=== PATIENT | male | born 1995 | race Caucasian/White ===

== ENCOUNTER 2022-04-30 18:00 | Emergency (ER) | payer OTHER, BC, SELFPAY ==
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
[2022-04-30 18:10] VITALS: BP 124/83; PULSE 103; RESP 18; TEMP 36.7; O2SAT 100
[2022-04-30 18:16] VITALS: BP 130/55; PULSE 100; O2SAT 99; BMI 28.5
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
== END 2022-04-30 19:52 | disposition home or self-care (01) ==
PROVIDERS: Emergency Provider Internal Medicine
DX: S09.90XA Unspecified injury of head, initial encounter (principal); M54.2 Cervicalgia; R51.9 Headache, unspecified; V43.02XA Car driver injured in collision with other type car in nontraffic accident, initial encounter; Y93.9 Activity, unspecified; Y92.410 Unspecified street and highway as the place of occurrence of the external cause; Y99.9 Unspecified external cause status; Z79.899 Other long term (current) drug therapy
CPT/HCPCS: 70450; 72125; 99284

== ENCOUNTER 2022-05-05 09:58 | Emergency (ER) | payer OTHER, BC, SELFPAY ==
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
[2022-05-05 10:11] VITALS: BP 112/75; PULSE 70; RESP 18; TEMP 37.1; O2SAT 99; BMI 26.4
--- NOTE | 2022-05-05 10:25 | PC.NURSE ---
DR THAYER CONSULTED REGARDING ORDERING HEAD CT FROM [facility]. OK TO ORDER HEAD CT DUE TO UNEQUAL PUPIL SIZE.
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
== END 2022-05-05 13:49 | disposition home or self-care (01) ==
PROVIDERS: Emergency Provider Emergency Medicine Emergency Medical Services
DX: S06.0X0A Concussion without loss of consciousness, initial encounter (principal); V43.52XA Car driver injured in collision with other type car in traffic accident, initial encounter; Y93.9 Activity, unspecified; Y92.410 Unspecified street and highway as the place of occurrence of the external cause; Y99.9 Unspecified external cause status; Z79.899 Other long term (current) drug therapy
CPT/HCPCS: 70450; 99283

== ENCOUNTER 2023-05-23 10:40 | Outpatient (AMB) | payer BC, SELFPAY ==
--- NOTE | 2023-05-23 10:46 | AM.OFFWIN_ITS ---
Intake Vital Signs 05/23/23 10:53 Height 5 ft 11 in BP 118/66 Blood Pressure Location Rt brachial Position Sitting Pulse 68 Pulse Source Pulse Oximeter Temp 98.2 F Temp Source Temporal Artery Scan Pulse Oximetry (%) 98 Intake Visit Reasons: EP tonisil swelling 1+month (marisa,masked) Intake Note: pt is here for c/o for over a month, patient was seen for same thing back on 04/30/23. strep was negative at the time. patient states he has hx of tonsil stones and he gets this for a few months every year Patient Tobacco Use Status: Never used Tobacco Allergies peanut Allergy (Verified 05/23/23 11:00) Anaphylaxis Medication List - Last Reconciled 05/23/23 by Avi Peñaloza PA-C cetirizine (Zyrtec) 10 mg PO DAILY PRN fluticasone propionate 50 mcg/actuation 1 spray intranasal DAILY HPI EP tonisil swelling 1+month (marisa,masked) HPI Details Patient is a 27 year male here today complaining small in tonsils over last month. Has history allergic rhinitis and chronic sinusitis. Has also a history of tonsil stones. Recently had similar episode of tonsillitis PFSH Social History Alcohol intake: never Patient Tobacco Use Status: Never used Tobacco Substance Use Type: Marijuana Review of Systems Const Denies headache(s) Eyes Denies loss of vision ENT Denies vertigo, Denies dizziness, Denies headache(s) and Denies sore throat Card Denies chest pain, Denies leg edema and Denies lightheadedness Resp Denies cough, Denies hemoptysis and Denies wheezing GI Denies abdominal pain, Denies melena, Denies constipation, Denies diarrhea and Denies vomiting Denies dysuria, Denies urinary frequency and Denies urinary urgency Musc Denies arthralgias, Denies joint swelling, Denies numbness and Denies tingling Neuro Denies Abnormal speech present, Denies behavioral changes, Denies vertigo, Mahendra es dizziness, Denies headache(s), Denies loss of vision, Denies memory loss, Denies numbness and Denies tingling Psych Denies anxiety, Denies behavioral changes, Denies depression, Denies memory loss and Denies panic attacks Chao/Lymph Denies easy bleeding and Denies easy bruising Aller/Immun Denies wheezing Physical Exam Vital Signs: Last Vital Signs Temp 98.2 F 05/23/23 10:53 Pulse 68 05/23/23 10:53 BP 118/66 05/23/23 10:53 Pulse Ox 98 05/23/23 10:53 Const General: healthy appearing, no acute distress, alert and awake Nutritional Appearance: well nourished Orientation/consciousness: oriented to person, oriented to place and oriented to time HEENT Other: THROAT WITH TONSILS 2+ PAST ANTERIOR PILLARS. NO NOTABLE ERYTHEMA . NO NOTABLE STONE AT THIS TIME, NO WHITE PATCHY EXUDATES. Ears: TM's normal bilaterally General nose exam: Normal nasal mucous membranes and turbinates present Eyes Conjunctivae: conjunctivae normal Sclerae: sclerae normal Pupils: Equal, round and reactive pupils present Neck Neck: Yes no lymphadenopathy and Yes no JVD Thyroid: Thyroid normal Carotids: no bruits Resp Effort & Inspection: normal respiratory effort and not tachypneic Auscultation: no crackles, no rales, no rhonchi and no wheezes Cardio Rate: regular rate Rhythm: regular rhythm Heart sounds: no murmurs and normal S1 and S2 GI Palpation (GI): Soft to palpation, nontender, no hepatomegaly and no splenomegaly Auscultation: normal bowel sounds Skin General skin exam: no rashes or lesions noted and dry skin Neuro General: oriented to person, oriented to place and oriented to time Cranial nerves: Yes Equal, round and reactive pupils present Speech: No Abnormal speech present Gait exam (Neuro): Normal gait present Motor exam (neuro): no tremor noted Extrem Right upper extremity: full ROM Left upper extremity: full ROM Right lower extremity: full ROM; no edema Left lower extremity: full ROM; no edema Psych Mental Status: mental status grossly normal Speech and movement: Normal speech and movement present Affect: normal affect Attitude: cooperative Thought process: Normal thought process present Assessment & Plan Assessment & Plan (1) Tonsil stone: Code(s): J35.8 - Other chronic diseases of tonsils and adenoids Plan: Patient's signs and symptoms most consistent with a pharyngitis likely secondary to his tonsil stones on the right side. Physical exam does show tonsils 2+ past anterior pillars. Strep negative today in office. Has already done antibiotics and prednisone the past without much relief. Advised on antihistamine therapy and popsicles to help reduce inflammation. Will refer to ENT for evaluation and possible need for elective tonsillectomy Orders: Referrals Ear/Nose/Throat Referral J35.8 - Other chronic diseases of tonsils and adenoids Coding Level of Care Code Est Pt Level 3 (42870) Diagnoses Tonsil stone J35.8
[2023-05-23 10:53] VITALS: BP 118/66; PULSE 68; TEMP 36.8; O2SAT 98
== END 2023-05-23 11:20 | disposition home or self-care (01) ==
PROVIDERS: PCP Hospitalist; Visit Provider Physician Assistant
DX: J35.8 Other chronic diseases of tonsils and adenoids (principal); Z13.9 Encounter for screening, unspecified
CPT/HCPCS: 87880; 99213

== ENCOUNTER 2023-10-15 11:07 | Outpatient (AMB) | payer BC, SELFPAY ==
[2023-10-15 11:14] VITALS: BP 120/64; PULSE 77; TEMP 36.4; O2SAT 98; BMI 29.5
--- NOTE | 2023-10-15 11:14 | MHC.OFFWIV ---
Intake Vital Signs 10/15/23 11:14 Height 5 ft 11 in Weight 211 lb 8 oz BMI 29.5 BP 120/64 Blood Pressure Location Lt brachial Position Sitting Pulse 77 Pulse Source Pulse Oximeter Temp 97.5 F Temp Source Temporal Artery Scan Pulse Oximetry (%) 98 Oxygen Delivery Method Room Air Intake Visit Reasons: EP swollen thyroid 1 wk Intake Note: Pt is here c/o right side swollen thyroid. Pt states he has a family history of thyroid issues. Patient Tobacco Use Status: Never used Tobacco Allergies peanut Allergy (Verified 10/15/23 11:15) Anaphylaxis Do you need a note to return to daycare/school/sports/work: No HPI HPI Comments History of Present Illness Details This is a 28yo male with a past medical history of seasonal allergies and tonsil stones presenting for evaluation of subjective enlargement of the right-sided his thyroid that he 1st noticed approximately 10 days ago. The patient states had a primary care physician appointment scheduled this morning in [place] however was canceled as the primary care physician has left practice. Patient denies having any pain in his thyroid has no difficulty swallowing or radiation of pain. Patient states his grandparents had issues related to a hyperthyroid state. [facility] Social History Alcohol intake: never Patient Tobacco Use Status: Never used Tobacco Substance Use Type: Marijuana Review of Systems Const All systems reviewed & are unremarkable except as noted in HPI and below Denies excessive sweating and Denies fatigue Eyes Reports as per HPI ENT Reports no additional complaints Card Reports as per HPI, Reports no additional complaints and Denies palpitations Psych Reports no additional complaints Endo Denies cold intolerance, Denies excessive sweating, Denies fatigue, Denies flushing, Denies heat intolerance, Denies polydipsia, Denies polyuria and Denies palpitations Chao/Lymph Reports no additional complaints Aller/Immun Reports no additional complaints Physical Exam Vital Signs: Last Vital Signs Temp 97.5 F 10/15/23 11:14 Pulse 77 10/15/23 11:14 BP 120/64 10/15/23 11:14 Pulse Ox 98 10/15/23 11:14 Oxygen Delivery Method Room Air 10/15/23 11:14 BMI result Body Mass Index 29.5 Const General: cooperative, healthy appearing, comfortable and no acute distress; No diaphoretic or ill appearing Nutritional Appearance: average body habitus Orientation/consciousness: patient oriented x3 Limitations: no limitations HEENT Head: Yes normal to inspection and Yes normocephalic Ears: hearing grossly normal bilaterally Mouth: Normal oral and palatal mucosa present, oropharynx normal and moist mucous membranes Teeth and gingiva: dentition normal Throat: Yes posterior oropharynx normal Eyes Eyelids: Yes eyelids normal Conjunctivae: conjunctivae normal Sclerae: sclerae normal Corneas: corneas normal Pupils: Equal, round and reactive pupils present EOM: EOMs intact bilaterally Neck Neck: Yes normal visual inspection, Yes full ROM, Yes no lymphadenopathy and Yes trachea midline Thyroid: asymmetrical (mild enlargement right lobe; no discrete nodules noted, thyroid nontender.), not diffusely enlarged, not firm, no nodules, no palpable nodules and nontender Skin General skin exam: no rashes or lesions noted Neuro General: patient oriented x3 Cranial nerves: Yes Equal, round and reactive pupils present Psych Appearance: grossly normal Mental Status: mental status grossly normal Insight: Good insight present (Psych) Judgement: Good judgement present (Psych) Assessment & Plan Assessment & Plan (1) Encounter for imaging to assess thyroid enlargement: Code(s): Z01.89 - Encounter for other specified special examinations Plan: Thyroid US is ordered; no laboratories ordered today. Patient will call PCP office in [place] to schedule follow-up with other PCP for further evaluation and treatment. Orders: Orders US thyroid 10/19/23 Z01.89 - Encounter for other specified special examinations Coding Level of Care Code Est Pt Level 3 (50479) Diagnoses Encounter for imaging to assess thyroid enlargement Z01.89 Time Spent (min) 20
== END 2023-10-15 12:02 | disposition home or self-care (01) ==
PROVIDERS: PCP Hospitalist; Visit Provider Physician Assistant
DX: Z01.89 Encounter for other specified special examinations (principal)
CPT/HCPCS: 99213

== ENCOUNTER 2023-10-19 12:42 | Outpatient (REF) | payer BC, SELFPAY ==
--- NOTE | ~2023-10-19 | US_ITS ---
EXAMINATION: US THYROID CLINICAL INFORMATION: Enlarged thyroid. COMPARISON: None available. TECHNIQUE: Linear transducer grayscale and color Doppler examination with attention to the region of the thyroid. FINDINGS: SIZE: Measurements of the thyroid lobes and nodules are given in sagittal, anteroposterior and transverse dimensions respectively. Right Thyroid Lobe: 6.24 x 2.27 x 2.04 cm, volume 15.2 mL. Parenchyma: The gland echotexture is heterogeneous. Thyroid vascularity is increased. Left Thyroid Lobe: 5.25 x 1.55 x 2.01 cm, volume 8.56 mL. Parenchyma: The gland echotexture is heterogeneous. Thyroid vascularity is increased. Isthmus: 0.57 cm in maximum AP dimension. No suspicious thyroid nodule is seen. NODES: Left level 3 nodes measure 0.8 x 0.8 x 0.5 cm and 0.2 x 0.9 x 1.4 cm. Echogenic priya are identified. US/US thyroid IMPRESSION: Diffusely heterogeneous and hypervascular thyroid gland. No suspicious thyroid nodules. Large, extremely heterogeneous thyroid gland. No discrete suspicious thyroid nodule appreciated. Left level 3 nodes measure 0.8 x 0.8 x 0.5 cm and 0.2 x 0.9 x 1.4 cm. Echogenic priya are identified. Decisions regarding further management and follow-up imaging should be based on clinical assessment. ACR TI-RADS RECOMMENDATION REFERENCE: Ultrasound-guided fine-needle aspiration, followup ultrasound, no further follow up. * TR1 (0 point) and TR2 (2 points): No FNA or follow up. * TR3 (3 points): FNA if more than or equal to 2.5 cm in maximum dimension, followup ultrasound in 1, 3 and 5 years if 1.5 to 2.4 cm in maximum dimension. * TR4 (4-6 points): FNA if more than or equal to 1.5 cm in maximum dimension, followup ultrasound in 1, 2, 3 and 5 years if 1 to 1.4 cm in maximum dimension. * TR5 (more than or equal to 7 points): FNA if more than or equal to 1 cm in maximum dimension, followup ultrasound every year for 5 years if 0.5 to 0.9 cm in maximum dimension. * TR3, TR4 or TR5 nodules that are below the size threshold for followup receive no follow up.
== END 2023-10-19 12:43 | disposition home or self-care (01) ==
LOC: HO.HMGCX 12:42
PROVIDERS: Visit Provider Physician Assistant
DX: Z01.89 Encounter for other specified special examinations (principal)
CPT/HCPCS: 76536

== ENCOUNTER 2023-10-29 15:39 | Outpatient (AMB) | payer BC, SELFPAY ==
--- NOTE | 2023-10-29 15:53 | MHC.PC.OV ---
Vital Signs 10/29/23 15:54 Height 5 ft 11 in Weight 212 lb 4 oz BMI 29.6 BP 118/76 Blood Pressure Location Lt brachial Position Sitting Respiration 13 Pulse 82 Pulse Source Pulse Oximeter Temp 97.9 F Temp Source Temporal Artery Scan Pulse Oximetry (%) 99 Oxygen Delivery Method Room Air Intake Visit Reasons: f/u thyroid labs and ultrasound Intake Note: Patient states that he was told that he should follow up with pcp to get referral to pan shaker. 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 Accompanied by: Self / Same As Patient Allergies peanut Allergy (Verified 10/29/23 16:15) Anaphylaxis Medication List - Last Reconciled 10/29/23 by Robbie Ko CNP No Known Home Meds Tobacco use date assessed: 10/29/23 Dental Screening Dental Screen Date: 10/29/23 Did you have a dental visit in the last 12 months?: No Did you have a dental problem in the last 6 months where you did not have access to dental care?: No Was dental information given to patient?: Patient has dentist HPI HPI Comments History of Present Illness Details 28-year-old male presents for a follow-up visit On 10/15/2023, he was evaluated at the [place] [facility] for subjective complaint of swollen thyroid gland. He had thyroid ultrasound done on 10/19/2023 with the following findings: IMPRESSION: Diffusely heterogeneous and hypervascular thyroid gland. No suspicious thyroid nodules. Large, extremely heterogeneous thyroid gland. No discrete suspicious thyroid nodule appreciated. Left level 3 nodes measure 0.8 x 0.8 x 0.5 cm and 0.2 x 0.9 x 1.4 cm. Echogenic priya are identified. Decisions regarding further management and follow-up imaging should be based on clinical assessment. ACR TI-RADS RECOMMENDATION REFERENCE: Ultrasound-guided fine-needle aspiration, followup ultrasound, no further follow up. * TR1 (0 point) and TR2 (2 points): No FNA or follow up. * TR3 (3 points): FNA if more than or equal to 2.5 cm in maximum dimension, followup ultrasound in 1, 3 and 5 years if 1.5 to 2.4 cm in maximum dimension. * TR4 (4-6 points): FNA if more than or equal to 1.5 cm in maximum dimension, followup ultrasound in 1, 2, 3 and 5 years if 1 to 1.4 cm in maximum dimension. * TR5 (more than or equal to 7 points): FNA if more than or equal to 1 cm in maximum dimension, followup ultrasound every year for 5 years if 0.5 to 0.9 cm in maximum dimension. * TR3, TR4 or TR5 nodules that are below the size threshold for followup receive no follow up. He notes that he was advised to follow-up with his PCP for referral to Endocrinology He notes that his thyroid gland has been swollen for the past one month, right worse than left. No associated pain , difficulty swallowing, or other symptoms He reports family history of hypothyroidism. 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 Cognitive needs: No Hearing needs: No Vision needs: No Review of Systems Const Details: Const Denies chills, Denies fatigue, Denies fever(s), Denies headache(s) and Denies weakness ENT Denies dizziness and Denies headache(s) Card Denies chest pain, Denies lightheadedness, Denies dyspnea and Denies other (Palpitations) Resp Denies cough, Denies dyspnea, Denies wheezing and Denies other ( shortness of breath) GI Denies abdominal pain, Denies melena, Denies hematochezia, Denies change in bowel habits, Denies dyspepsia and Denies nausea Denies hematuria and Denies dysuria Musc Denies abnormal gait, Denies myalgias, Denies arthralgias, Denies numbness and Denies tingling Skin/Breast Denies rash, Denies unusual bruising and Denies wounds Neuro Denies abnormal gait, Denies dizziness, Denies headache(s), Denies memory loss, Denies numbness, Denies Sensory deficit (Neuro), Denies tingling and Denies weakness Psych Denies anxiety, Denies depression, Denies memory loss Endo Denies cold intolerance, Denies fatigue, Denies heat intolerance, Denies polydipsia and Denies polyuria Aller/Immun Denies wheezing Physical exam (Primary Care) Vital Signs: Last Vital Signs Temp 97.9 F 10/29/23 15:54 Pulse 82 10/29/23 15:54 Resp 13 10/29/23 15:54 BP 118/76 10/29/23 15:54 Pulse Ox 99 10/29/23 15:54 Oxygen Delivery Method Room Air 10/29/23 15:54 BMI result Body Mass Index 29.6 Tobacco/Smoking Status: Tobacco use Status Tobacco use date assessed 10/29/23 10/29/23 16:00 Patient Tobacco Use Status Never used Tobacco 10/29/23 16:00 e-Cigarette/Vaping Use Never Used 10/29/23 16:00 Const Other: General: no acute distress and well developed Nutritional Appearance: well nourished Orientation/consciousness: patient oriented x3 HENMT Head: Yes normocephalic and Yes atraumatic Thyroid gland slightly enlarged, no mass palpated Eyes General: appearance normal, both eyes and all related structures Pupils: Equal, round and reactive pupils present EOM: EOMs intact bilaterally Resp Effort & Inspection: normal respiratory effort Auscultation: clear to auscultation bilaterally Cardio Rate: regular rate Rhythm: regular rhythm Heart sounds: S1 normal heart sound present, S2 normal heart sound present, no gallops, no murmurs and no rubs GI Palpation (GI): No Abdominal aortic bruit present, Soft to palpation, nontender, No hepatosplenomegaly present and No Rebound tenderness present Auscultation: normal bowel sounds General: Yes no CVA tenderness Back/Spine/Pelvis Back: no CVA tenderness Cervical Spine: cervical ROM normal and No Cervical spine tenderness Thoracic/Lumbar Spine: thoraco-lumbar ROM normal, No pain with thoraco-lumbar ROM, No thoracic spinal tenderness and No lumbar spinal tenderness Extrem General: Yes normal to inspection, No edema and No calf tenderness Skin General: warm and dry. Normal skin color. Normal skin turgor Lesions: no lesions Rashes: no rashes Trauma: no lacerations or abrasions Wounds: no wounds Nails: normal Neuro General: patient oriented x3, gait normal and no focal neuro deficit Cranial nerves: Yes Equal, round and reactive pupils present Cognition (Neuro): normal cognition Gait exam (Neuro): Normal gait present Sensory Exam: No Sensory deficit (Neuro) Psych Appearance: grossly normal Affect: normal affect Attitude: cooperative Thought process: Normal thought process present Assessment and Plan Assessment & Plan (1) Thyroid nodule: Code(s): E04.1 - Nontoxic single thyroid nodule Plan: Reports swelling thyroid gland for the past 1 month, right worse than left. No associated pain or difficulty swallowing Thyroid gland slightly enlarged, no mass palpated Recent thyroid ultrasound revealed thyroid nodules and enlarged thyroid gland TSH/T4 ordered Referred to endocrinology Follow-up as planned for transfer of care Return sooner with symptoms or concerns Verbalized understanding and agreed with treatment plan (2) Enlarged thyroid: Code(s): E04.9 - Nontoxic goiter, unspecified Plan: As above (3) Laboratory tests ordered as part of a complete physical exam (CPE): Code(s): Z00.00 - Encounter for general adult medical examination without abnormal findings Plan: Fasting labs ordered as part of a complete physical exam. Advised to fast for at least 10 hours before getting labs drawn. May drink water Verbalized understanding and agreed with treatment plan. Orders: Orders TSH reflex Free T4 10/29/23 E04.1 - Nontoxic single thyroid nodule, E04.9 - Nontoxic goiter, unspecified Complete Blood Count Auto Diff 10/29/23 Z00.00 - Encounter for general adult medical examination without abnormal findings Comprehensive [place]. Panel Fast 10/29/23 Z00.00 - Encounter for general adult medical examination without abnormal findings Lipid Panel 10/29/23 Z00.00 - Encounter for general adult medical examination without abnormal findings Referrals Endocrinology Referral E04.1 - Nontoxic single thyroid nodule, E04.9 - Nontoxic goiter, unspecified Coding Level of Care Code Est Pt Level 3 (39971) Diagnoses Thyroid nodule E04.1 Enlarged thyroid E04.9 Laboratory tests ordered as part of a complete physical exam (CPE) Z00.00
[2023-10-29 15:54] VITALS: BP 118/76; PULSE 82; RESP 13; TEMP 36.6; O2SAT 99; BMI 29.6
== END 2023-10-29 16:33 | disposition home or self-care (01) ==
PROVIDERS: PCP Hospitalist; Visit Provider Nurse Practitioner Family
DX: E04.1 Nontoxic single thyroid nodule (principal); E04.9 Nontoxic goiter, unspecified; Z00.00 Encounter for general adult medical examination without abnormal findings
CPT/HCPCS: 99213

== ENCOUNTER 2023-11-12 09:35 | Outpatient (REF) | payer BC, SELFPAY ==
[2023-11-12 13:51] LABS: MANUAL DIFF FLAG NO
[2023-11-12 14:06] LABS: Basophils Percent Auto 0.4 % (0-2); Eosinophils Absolute Auto 0.1 X10*3/uL (0.0-0.4); Eosinophils Percent Auto 1.3 % (0-4); Hematocrit 46.7 % (42.0-52.0); Hemoglobin 15.5 g/dl (14.0-18.0); Imm Gran Abs Auto 0.02 X10*3/uL (0.00-0.03); Imm Gran Pct Auto 0.4 % (0.0-0.4); Lymphocytes Absolute Auto 1.5 X10*3/uL (1.2-4.9); Lymphocytes Percent Auto 26.7 % (20-40); Mean Corpuscular HGB Conc 33.2 g/dl (31.0-36.0); Mean Corpuscular Hemoglobin 28.9 pg (27.0-33.0); Mean Platelet Volume 11.5 fL (9.4-12.4); Monocytes Absolute Auto 0.6 X10*3/uL (0.1-1.2); Monocytes Percent Auto 10.4 % (2-11); Neutrophils Absolute Auto 3.3 x10*3/uL (2.0-8.3); Neutrophils Percent Auto 60.8 % (45-73); Platelet Count 219 X10*3/uL (160-400); Red Blood Count 5.37 X10*6/uL (4.60-5.80); Red Cell Distribution Width 12.7 % (11.0-16.0); White Blood Count 5.5 X10*3/uL (4.8-10.8)
[2023-11-12 14:30] LABS: Alanine Aminotransferase 21 U/L (0-40); Albumin Level 4.4 g/dL (3.5-5.0); Alkaline Phosphatase 41 U/L (39-117); Anion Gap 11 (12-20); Aspartate Amino Transferase 18 U/L (5-37); Bilirubin Total 0.5 mg/dL (0.0-1.0); Blood Urea Nitrogen 13 mg/dL (9-16); Calcium 9.9 mg/dL (8.4-10.2); Carbon Dioxide 27 mmol/L (22-29); Chloride 107 mmol/L (96-108); Cholesterol 168 mg/dL (<200); Estimated Glomerular Filt Rate > 60; Glucose Fasting 103 mg/dL (60-99); HDL Cholesterol 41 mg/dL (>40); LDL Cholesterol Calculated 113 mg/dL (<100); Potassium 4.6 mmol/L (3.3-5.1); Sodium 140 mmol/L (135-145); Total Protein 7.4 g/dL (6.5-8.0); Triglycerides 73 mg/dL (<150)
== END 2023-11-12 09:36 | disposition home or self-care (01) ==
LOC: HO.HMGCLDS 09:35
PROVIDERS: PCP Nurse Practitioner Family; Visit Provider Nurse Practitioner Family
DX: Z00.00 Encounter for general adult medical examination without abnormal findings (principal); E04.1 Nontoxic single thyroid nodule; E04.9 Nontoxic goiter, unspecified
CPT/HCPCS: 36415; 80053; 80061; 84443; 85025

== ENCOUNTER 2023-11-30 14:39 | Outpatient (AMB) | payer BC, SELFPAY ==
[2023-11-30 15:02] VITALS: BP 126/74; PULSE 79; RESP 13; TEMP 36.4; O2SAT 99; BMI 28.7
--- NOTE | 2023-11-30 15:02 | A.OFFPC_ITS ---
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 Accompanied by: Self / Same As Patient Allergies peanut Allergy (Verified 11/30/23 15:10) Anaphylaxis Medication List - Last Reconciled 11/30/23 by Robbie Ko CNP No Known Home Meds Tobacco use date assessed: 11/30/23 Dental Screening Dental Screen Date: 11/30/23 Did you have a dental visit in the last 12 months?: No Did you have a dental problem in the last 6 months where you did not have access to dental care?: No Was dental information given to patient?: Patient has dentist HPI HPI Comments History of Present Illness Details 28-year-old male presents for transfer o f care Her former PCP is JOSE G who is no longer with the practice She was evaluated in the office a month ago for enlarged thyroid gland follow-up and was referred to endocrinology. He notes that he was evaluated by [facility] last week. He was told there were no concerns and was advised to follow up in 6 months Recent labs were unremarkable except for slightly elevated fasting glucose, 103 He notes he is not anxious any more than usual. He notes h/o ROZINA with h/o psychotherapy, no h/o psychotropic medications. 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 1. Little interest or pleasure in doing things: not at all 2. Feeling down, depressed, or hopeless: several days 3. Trouble falling or staying asleep, or sleeping too much: not at all 4. Feeling tired or having little energy: several days 5. Poor appetite or overeating: not at all 6. Feeling bad about yourself - or that you are a failure or have let yourself or your family down: more than half the days 7. Trouble concentrating on things, such as reading the newspaper or watching television: not at all 8. Moving or speaking so slowly that other people could have noticed. Or the opposite - being so fidgety or restless that you have been moving around a lot more than usual: not at all 9. Thoughts that you would be better off or of hurting yourself in some way: not at all Total score: 4 Depression Screening Interpretation: Negative Depression Screening Done: Yes 33127 - PHQ-9 Billing: Yes Source: Developed by Drs. Abdiel Adan, Manju Woods, Juancarlos Hughes and colleagues, with an educational chandler from [employer]. Thrive Questionnaire Date Thrive assessed: 11/30/23 I am a: Patient What is your living situation today?: I have a steady place to live Within the past 12 months, did the food you bought not last and you didn't have the money to get more?: Never true Within the past 12 months, did you worry whether your food would run out before you got money to buy more?: Never true Do you have trouble paying for medicines?: No Do you have trouble getting transportation to medical appointments?: No Do you have trouble paying your heating and electricity bill?: No Do you have trouble taking care of your child, family member or friend?: No Do you have trouble with day-to-day activities such as bathing, preparing meals, shopping, managing finances, etc.?: No Are you currently unemployed and looking for a job?: No Are you interested in more education?: Yes Please select the resources that you would like help with: Education Currently or been in a relationship where the following occur: no concerns reported THRIVE Score: 0 AUDIT C Alcohol Use Questionnaire (AUDIT-C) 1. How often do you have a drink containing alcohol?: Monthly or less 2. How many drinks containing alcohol do you have on a typical day when you are drinking?: 1 or 2 3. How often do you have six or more drinks on one occasion?: Never Total Score: 1 ROZINA-7 AMB Questionnaire ROZINA-7 Date ROZINA - 7 assessed: 11/30/23 Feeling nervous, anxious, or on edge: 2 = More than half the days Not being able to stop or control worryin = More than half the days Worrying too much about different things: 2 = More than half the days Trouble relaxin = Several days Being so restless that it is hard to sit still: 1 = Several days Becoming easily annoyed or irritable: 1 = Several days Feeling afraid as if something awful might happen: 2 = More than half the days Total ROZINA-7 score (0-4 normal; 5-9 mild; 10-14 moderate; 15-21 severe): 11 Source: Developed by Drs. Abdiel Adan, Manju Woods, Juancarlos Hughes and colleagues, with an educational chandler from [employer]. ROZINA-7 Assessment Billing ROZINA-7 Assessment Tool: ROZINA-7 Assessment 40114 Review of Systems Const Details: Denies chills, Denies fatigue, Denies fever(s), Denies headache(s) and Denies weakness HEENT Denies change in vision, Denies dizziness, Denies headache(s), Denies hearing loss, Denies nasal congestion, Denies sinus pain, Denies sinus pressure and Denies sore throat Card Denies chest pain, Denies lightheadedness, Denies dyspnea and Denies other (palpitations) Resp Denies cough, Denies dyspnea and Denies wheezing GI Denies abdominal pain, Denies melena, Denies hematochezia, Denies change in bowel habits, Denies dyspepsia and Denies nausea Denies hematuria and Denies dysuria Musc Denies abnormal gait, Denies myalgias, Denies arthralgias, Denies numbness and Denies tingling Skin/Breast Denies rash, Denies unusual bruising and Denies wounds Neuro Denies abnormal gait, Denies dizziness, Denies headache(s), Denies memory loss, Denies numbness, Denies Sensory deficit (Neuro), Denies tingling and Denies weakness Psych Denies anxiety, Denies depression and Denies memory loss Endo Denies cold intolerance, Denies fatigue, Denies heat intolerance, Denies polydipsia and Denies polyuria Chao/Lymph Denies easy bleeding and Denies easy bruising Aller/Immun Denies wheezing Physical exam (Primary Care) Tobacco/Smoking Status: Tobacco use Status Tobacco use date assessed 10/29/23 10/29/23 16:00 Patient Tobacco Use Status Never used Tobacco 10/29/23 16:00 e-Cigarette/Vaping Use Never Used 10/29/23 16:00 Depression Screening Interpretation: Negative Currently or been in a relationship where the following occur: no concerns reported Const Other: General: no acute distress, well developed, alert and awake Nutritional Appearance: well nourished Orientation/consciousness: patient oriented x3 HENMT Head: Yes normocephalic and Yes atraumatic Ears: hearing grossly normal bilaterally and TM's normal bilaterally General nose exam: Normal external nose present and Normal nares present Mouth: Normal oral and palatal mucosa present and moist mucous membranes Teeth and gingiva: dentition normal Throat: Yes oropharynx normal Eyes Pupils: Equal, round and reactive pupils present and Pupil accommodation reflex normal EOM: EOMs intact bilaterally Neck Neck: Yes normal visual inspection, Yes no lymphadenopathy and Yes trachea midline Thyroid: Thyroid normal Carotids: no bruits Lymphatic: no lymphadenopathy noted Chest Chest palpation & inspection: normal inspection of the chest Resp Effort & Inspection: normal respiratory effort Auscultation: clear to auscultation bilaterally Cardio Rate: regular rate Rhythm: regular rhythm Heart sounds: S1 normal heart sound present, S2 normal heart sound present, no gallops, no murmurs and no rubs Bruits: no abdominal aortic bruits and no carotid bruits GI Palpation (GI): No Abdominal aortic bruit present, Soft to palpation, nontender, No hepatosplenomegaly present and No Rebound tenderness present Auscultation: normal bowel sounds General: Yes no CVA tenderness Back/Spine/Pelvis Back: no CVA tenderness Cervical Spine: cervical ROM normal and No Cervical spine tenderness Thoracic/Lumbar Spine: thoraco-lumbar ROM normal, No pain with thoraco-lumbar ROM, No thoracic spinal tenderness and No lumbar spinal tenderness Skin General: warm and dry. Normal skin color. Normal skin turgor Lesions: no lesions Rashes: no rashes Trauma: no lacerations or abrasions Wounds: no wounds Nails: normal Neuro General: patient oriented x3, gait normal and CN's II-XI intact bilaterally Cranial nerves: Yes Equal, round and reactive pupils present Cognition (Neuro): normal cognition Gait exam (Neuro): Normal gait present Motor exam (neuro): 5/5 motor strength present throughout Sensory Exam: No Sensory deficit (Neuro) Deep tendon reflexes (DTR's): Right patellar reflex intensity grade: 2+ and Left patellar reflex intensity grade: 2+ Extrem General: Yes normal to inspection, No edema and No calf tenderness Psych Appearance: grossly normal Affect: normal affect Attitude: cooperative Thought process: Normal thought process present Assessment and Plan Assessment & Plan (1) Normal physical exam: Code(s): Z00.00 - Encounter for general adult medical examination without abnormal findings Plan: No significant physical restrictions or limitations noted Healthy diet and routine exercise encouraged Advised to schedule his next physical for a year from today Follow-up with endocrinology as planned Return with symptoms or concerns Verbalized understanding and agreed with treatment plan (2) Generalized anxiety disorder: Code(s): F41.1 - Generalized anxiety disorder Plan: Reports controlled symptoms with self therapy PHQ-9 score is normal ROZINA-7 score reveals moderate anxiety Declines therapy or medication management Routine exercise encouraged Advised to inform his PCP if he changes his mind on therapy or medication management Follow-up with worsening or new symptoms Verbalized understanding and agreed with treatment plan Coding Level of Care Code Est Pt Prev Care 18-39y(33313) Diagnoses Normal physical exam Z00.00 Generalized anxiety disorder F41.1 Additional Codes ROZINA-7 Assessment Billing - ROZINA-7 Assessment Tool: ROZINA-7 Assessment 77498 ([id number])
== END 2023-11-30 15:27 | disposition home or self-care (01) ==
PROVIDERS: PCP Hospitalist; Visit Provider Nurse Practitioner Family
DX: Z00.00 Encounter for general adult medical examination without abnormal findings (principal); F41.1 Generalized anxiety disorder
CPT/HCPCS: 99395

== ENCOUNTER 2024-05-24 17:15 | Outpatient (AMB) | payer BC, SELFPAY ==
--- NOTE | 2024-05-24 17:17 | A.OFFPC_ITS ---
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 The wart has been present for the past 2 months and not increasing in size. No itching or other associated symptoms. He denies h/o wart. [facility] Medical History No pertinent past medical history Surgical History No pertinent past surgical history Social History Housing: Apartment Alcohol intake: never Patient Tobacco Use Status: Never used Tobacco e-Cigarette/Vaping Use: Never Used Substance Use Type: Marijuana service: No Current occupational status: employed Current occupation: [employer] Cognitive needs: No Hearing needs: No Vision needs: No Questionnaire Thrive Questionnaire Date Thrive assessed: 11/30/23 AUDIT C Alcohol Use Questionnaire (AUDIT-C) 1. How often do you have a drink containing alcohol?: Never Total Score: 0 ROZINA-7 AMB Questionnaire ROZINA-7 Date ROZINA - 7 assessed: 11/30/23 Source: Developed by Drs. Abdiel Adan, Manju Woods, Juancarlos Hughes and colleagues, with an educational chandler from [employer]. Review of Systems Const Details: Const Denies chills, Denies fatigue, Denies fever(s), Denies headache(s) and Denies weakness ENT Denies dizziness and Denies headache(s) Card Denies chest pain, Denies lightheadedness, Denies dyspnea and Denies other (Palpitations) Resp Denies cough, Denies dyspnea, Denies wheezing and Denies other ( shortness of breath) GI Denies abdominal pain, Denies melena, Denies hematochezia, Denies change in bowel habits, Denies dyspepsia and Denies nausea Denies hematuria and Denies dysuria Musc Denies abnormal gait, Denies myalgias, Denies arthralgias, Denies numbness and Denies tingling Skin/Breast Reports wart, Denies unusual bruising and Denies wounds Neuro Denies abnormal gait, Denies dizziness, Denies headache(s), Denies memory loss, Denies numbness, Denies Sensory deficit (Neuro), Denies tingling and Denies weakness Psych Denies anxiety, Denies depression, Denies memory loss Endo Denies cold intolerance, Denies fatigue, Denies heat intolerance, Denies polydipsia and Denies polyuria Aller/Immun Denies wheezing Physical exam (Primary Care) Vital Signs: Last Vital Signs Temp 97.5 F 05/24/24 17:20 Pulse 58 05/24/24 17:20 Resp 16 05/24/24 17:20 BP 112/69 05/24/24 17:20 Pulse Ox 98 05/24/24 17:20 Oxygen Delivery Method Room Air 05/24/24 17:20 BMI result Body Mass Index 30.0 Tobacco/Smoking Status: Tobacco use Status Tobacco use date assessed 11/30/23 05/24/24 17:18 Patient Tobacco Use Status Never used Tobacco 05/24/24 17:18 e-Cigarette/Vaping Use Never Used 05/24/24 17:18 Thrive Assessment: Date of Thrive Assessment Date Thrive assessed 11/30/23 05/24/24 17:18 Const Other: General: no acute distress and well developed Nutritional Appearance: well nourished Orientation/consciousness: patient oriented x3 HENMT Head: Yes normocephalic and Yes atraumatic Eyes General: appearance normal, both eyes and all related structures Pupils: Equal, round and reactive pupils present EOM: EOMs intact bilaterally Resp Effort & Inspection: normal respiratory effort Auscultation: clear to auscultation bilaterally Cardio Rate: regular rate Rhythm: regular rhythm Heart sounds: S1 normal heart sound present, S2 normal heart sound present, no gallops, no murmurs and no rubs GI Palpation (GI): No Abdominal aortic bruit present, Soft to palpation, nontender, No hepatosplenomegaly present and No Rebound tenderness present Auscultation: normal bowel sounds General: Yes no CVA tenderness Back/Spine/Pelvis Back: no CVA tenderness Cervical Spine: cervical ROM normal and No Cervical spine tenderness Thoracic/Lumbar Spine: thoraco-lumbar ROM normal, No pain with thoraco-lumbar ROM, No thoracic spinal tenderness and No lumbar spinal tenderness Extrem General: Yes normal to inspection, No edema and No calf tenderness Skin General: warm and dry. Normal skin color. Normal skin turgor Lesions: Approx. 0.2 cm, round lesion noted to the palm of his right hand, between his right thumb and index finger, consistent with wart Rashes: no rashes Trauma: no lacerations or abrasions Wounds: no wounds Nails: normal Neuro General: patient oriented x3, gait normal and no focal neuro deficit Cranial nerves: Yes Equal, round and reactive pupils present Cognition (Neuro): normal cognition Gait exam (Neuro): Normal gait present Sensory Exam: No Sensory deficit (Neuro) Psych Appearance: grossly normal Affect: normal affect Attitude: cooperative Thought process: Normal thought process present Assessment and Plan Assessment & Plan (1) Wart of hand: Code(s): B07.9 - Viral wart, unspecified Plan: Approx. 0.2 cm, round lesion noted to the palm of his right hand, between his right thumb and index finger, consistent with wart Cryotherapy applied Informed that a blister will form underneath the lesion in a few days, followed by a scab which will eventually fall off with the wart. He may take a few treatments to be successful. He may return as needed for further treatments May take Tylenol ibuprofen for pain or discomfort Apply a Band-Aid to the area as needed Verbalized understanding and agreed with the treatment plan Coding Level of Care Code Est Pt Level 4 (65835) Diagnoses Wart of hand B07.9
[2024-05-24 17:20] VITALS: BP 112/69; PULSE 58; RESP 16; TEMP 36.4; O2SAT 98
== END 2024-05-24 18:05 | disposition home or self-care (01) ==
PROVIDERS: PCP Nurse Practitioner Family; Visit Provider Nurse Practitioner Family
DX: B07.9 Viral wart, unspecified (principal)
CPT/HCPCS: 17110; 99214

== ENCOUNTER 2024-07-04 07:57 | Outpatient (REF) | payer BC, SELFPAY ==
[2024-07-04 11:24] LABS: Free T4 (Free Thyroxine) 0.88 ng/dL (0.71-1.85); Thyroid Stimulating Hormone 5.46 uIU/mL (0.32-4.0)
== END 2024-07-04 07:58 | disposition home or self-care (01) ==
LOC: HO.HMGCLDS 07:57
PROVIDERS: PCP Nurse Practitioner Family; Visit Provider Physician Assistant
DX: E06.3 Autoimmune thyroiditis (principal)
CPT/HCPCS: 36415; 84439; 84443